=== PATIENT | female | born 2000 | race Caucasian/White ===

== ENCOUNTER 2024-12-30 09:50 | Outpatient (AMB) | payer BC, SELFPAY ==
--- NOTE | 2024-12-30 10:02 | A.OFFVIS_ITS ---
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 Patient says that she gets these symptoms when she suddenly gets up from a sitting or supine position. She remains 1 episode while she was laying down and she got up suddenly, she then felt weird funny in his head with dog vision and before she could tell anything to her boyfriend she had crumpled down to the ground. The boyfriend caught her before she fell down to the ground and she had lost consciousness. She had a transient loss of consciousness for about 30 seconds. As per her the boyfriend says she is extremely pale during that time. However she regained consciousness for aware right away where she was. She had few episodes like this last year. 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 Because of these symptoms she was then referred for cardiology but could not get a cardiology appointment soon. She then a Holter monitor done which shows frequent narrow complex tachycardia, based on the Holter recordings unclear whether these are sinus tachycardia or SVT. Patient subsequently says that because of these recurrent episodes she was advised increase fluid and salt intake which she has been religiously doing since June. Also a thyroid hormone levels were regulated with increasing dose of levothyroxine and since then she has been feeling better with less episodes. However she is still gets these episode where she gets lightheaded feels like tunnel vision, feels called and if she does not sit down and lie down she would lose consciousness. She also has independent symptoms of rapid heart rate which are not associated with the symptoms. She denies any exertional chest pain, shortness of breath. No other systemic illness. She is trying to lose weight and has been prescribed semaglutide on a weekly basis. She denies any significant substance abuse, alcohol use or caffeine intake. She denies any dnuj-cao-upwjdda medications. She has been on Vyvanse for her attention deficit disorder for long time. [facility] Surgical History History of eye surgery Family History Father No problems noted. Mother Diabetes Social History Patient Tobacco Use Status: Never used Tobacco Review of Systems Const Denies chills, Reports daytime sleepiness, Denies fatigue, Denies fever(s), Denies frequent falls, Denies poor appetite, Denies snoring, Denies stops breathing during sleep, Denies weakness, Reports weight gain and Denies weight loss Eyes Denies loss of vision ENT Reports dizziness and Denies hearing loss Card Reports chest pain, Denies claudication, Denies leg edema, Reports lightheadedness, Reports palpitations, Reports dyspnea, Denies dyspnea on exertion and Denies orthopnea Resp Denies cough, Denies excessive phlegm production, Reports dyspnea, Denies dyspnea on exertion, Denies snoring and Denies wheezing GI Denies abdominal pain, Denies hematochezia, Denies change in bowel habits, Denies nausea and Denies vomiting Denies urinary frequency and Denies dysuria Musc Denies arthralgias, Reports muscle weakness and Denies numbness Skin/Breast Denies nail changes and Denies rash Neuro Denies Abnormal speech present, Reports dizziness, Denies frequent falls, Denies loss of vision, Denies memory loss, Denies numbness and Denies weakness Psych Reports depression and Denies memory loss Endo Denies fatigue and Reports palpitations Jabari/Lymph Reports easy bruising and Reports other (anemia) Aller/Immun Denies wheezing Physical Exam Vital Signs: Last Vital Signs Pulse 84 12/30/24 10:03 BP 106/70 12/30/24 10:03 BMI result Body Mass Index 30.9 Const General: cooperative, comfortable, no acute distress, well developed, alert and awake Nutritional Appearance: well nourished and overweight Orientation/consciousness: patient oriented x3 Limitations: no limitations HEENT Head: Yes normocephalic and Yes atraumatic Neck Neck: Yes trachea midline, Yes supple and Yes no JVD Resp Effort & Inspection: normal respiratory effort Auscultation: clear to auscultation bilaterally Cardio Jugular venous distension: no JVD Rate: regular rate Rhythm: regular rhythm Heart sounds: S1 normal heart sound present, S2 normal heart sound present, no click, no gallops and no murmurs GI Auscultation: normal bowel sounds Skin General skin exam: no rashes or lesions noted Neuro General: patient oriented x3 and no focal motor deficits Speech: No Abnormal speech present Extrem General: Yes no clubbing, cyanosis or edema Psych Appearance: grossly normal Office Procedures EKG Details: EKGs shows normal sinus rhythm with left axis deviation voltage criteria for LVH without any repolarization abnormality with small Q-waves in high lateral leads. 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 Mechanism of both syncope is were discussed in details. Most likely trigger is relative hypovolemia. This was discussed with her. Since about June she says she has been increasing her water and salt intake and has led to improvement in his symptoms. She persists with her symptoms. We discussed the role of fluid and salt therapy in maintaining her symptoms and preventing her from having a syncopal episode and improving her quality of life. This was discussed with her. Advised her to push more fluids and salt intake on a regular basis. Orthostatic precautions were discussed. She understands them well. She has an EKGs that possibly suggest hypertrophic cardiomyopathy and would suggest an echocardiogram to evaluate for the same. Will also suggest a 30 day event monitor to assess for the symptoms of palpitations. However for detecting dysautonomia and response to upright tilt table testing with the guide further therapy. At this point time I would advise no pharmacotherapy. However various other options of pharmacotherapy were discussed in details. Avoidance of stimulants was discussed. She is encouraged to continue to participate in weight loss which may have contributed to her symptoms although advised to participate in more regular physical activity which may enhance vagal tone and help some of her rapid heart rate symptoms. Will follow up in the clinic in few months time after above-mentioned testing. Thank you for allowing me to partake in her care Coding Level of Care Code New Pt Level 4 (41343) Complex EM visit Add On G2211 Diagnoses Dysautonomia G90.1 CPT Codes EKG - CPT: 85329-[id number], Complete ([id number])
[2024-12-30 10:03] VITALS: BP 106/70; BP 111/59; BP 113/65; PULSE 71; PULSE 72; PULSE 84; BMI 30.9
--- OUTSIDE RECORDS SUMMARY | 2024-12-30 11:25 | XMS_ITS | Encounter Summary ---
Author Organization [facility] Address [address] [place], [place] [id number] Phone Care Team Providers Care Tile Machine Operator Name Role Phone Inna Muir MD Primary Care Provider [phone] Encounter Details Date Type Department Care Team (Late st Contact Info) Description 07/16/2017 Conversion Encounter [facility] - [address] [address] Inna Muir MD [address] [place] [id number] Social History Tobacco Use Types Packs/Day Years Used Date Smoking Tobacco: Never Assessed Comments Unknown Sex and Gender Information Value Date Recorded Sex Assigned at Not on file Legal Sex Female 6:20 PM EDT Gender Identity Female 11/08/2019 10:29 AM EDT Sexual Orientation Not on file documented as of this encounter Plan of Treatment Not on file documented as of this encounter Visit Diagnoses Not on filedocumented in this encounter Care Teams Tile Machine Operator Relationship Specialty Start Date End Date Inna Muir MD [address] [place] [id number] PCP - General 07/05/17 08/09/22 documented as of this encounter
--- OUTSIDE RECORDS SUMMARY | 2024-12-30 11:25 | XMS_ITS | Clinical Summary ---
Author Organization [facility] Address [address] [place] [phone] Phone Care Team Providers Care Bookbinding Machine Operator Name Role Phone Unavailable Primary Care Provider Unavailabl e Allergies Active Allergy Reactions Criticality Noted Date Comments Nystatin Rash Low 02/01/2022 Medications lisdexamfetamine (Vyvanse) 50 MG capsuleIndications :Attention deficit disorder (ADD) without hyperactivity Take 1 capsule (50 mg total) by mouth every morning. 30 capsule 3 Active Active Problems Problem Noted Date Diagnosed Date Psychosocial stressors 04/03/2020 Overview (04/03/2020): Mom Nov 2019--she had not seen her in awhile and mom had a h/o not being supportive or following through.( of seizure/ other medical issues) Assessment & Plan (04/03/2020 1:09 PM EST): of mom this fall Went to [place] for , missed school, prof not supportive of delaying due dates etc, thus grades suffered College ([employer]) no longer supporting her program, she has transferred to [employer] now, back at home Living back at home has its own stressors--household meals, chores, living with father, stepmothers 1/2 sister Puja supportive, as is her boyfriend Helpful to get out of the house at least once a week Sleep disturbance 12/20/2019 Assessment & Plan (02/01/2022 11:12 AM EST): Overall does well Reviewed that when changing work schedules, the evening/ night of new shift, take melatonin (she has 5 mg) 2 hours before bedtime for the next couple nights This may be helpful in having her readjust her sleep onset time Assessment & Plan (08/17/2021 12:15 PM EDT): No concerns, on reg schedule Assessment & Plan (05/12/2021 10:43 AM EDT): Better now Assessment & Plan (07/03/2020 11:36 AM EDT): Chronic struggles, unclear if due to ADD itself or medication, but recommend trial with hydroxyzine to help with sleep onset. If ineffective or side effects, will shift to clonidine Stop melatonin Stay with reg sleep schedule Assessment & Plan (04/03/2020 1:10 PM EST): Overall better now that she is at home, darker room Still with erratic schedule Advised to work on more reg sleep schedule, always in bed 11 PM, up at the same time Use melatonin to help reset sleep schedule, then stop if possible Assessment & Plan (01/13/2020 6:26 PM EST): Taking melatonin nightly Reg bedtime overall Doing better, continue Assessment & Plan (12/20/2019 12:18 PM EDT): Has had issues when younger, she thinks melatonin helped (stopped due to parental concern) She goes to bed 11-12 and gets up 9:30 Am and takes vyvanse before noon Now having a hard time falling asleep --up for hours Reviewed sleep hygiene in general Take vyvanse right when she gets up, 9:30-10 AM Trial with melatonin an hour before bedtime, around 10:30-11 Ok to increase to 6 mg if needed If not helping, let me know, ? 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 No side effects other than occ GI upset Continue with Vyvanse 50 mg QAM, refill not needed Turning 22, will establish with certified genetic counselor next winter Will prescribe Vyvanse here until then Assessment & Plan (05/12/2021 10:44 AM EDT): Feels the 50 mg worked well last Nov when she took it to help move and work as well, no side effects Would like to restart now, due to some struggles at work Vyvanse 50 mg restarted today, will let me know if not working well F/u 3 months Assessment & Plan (07/03/2020 11:35 AM EDT): Some benefit with Vyvanse 40 mg, calmer, but still a hard time not forgeting things, hearing instructions, paying attention. Thus recommended increasing to 50 mg. Sent in 10 mg dose to add to 40 mg Call if having negative effects with appetite and sleep If no change after a week of trying it, call and will go to 60 mg F/u 3 weeks (if side effects, will change medication) Assessment & Plan (04/03/2020 1:06 PM EST): Overall the vyvanse is helpful, she can concentrate/ focus for longer periods of time. (if takes a break, hard to get going again) Her mind can be all over the place , unclear if anxiety or ADD, as she can focus/get work done. In light of this, recommended staying with current Vyvanse dose of 40 mg. Only takes school days, has needed less due to chaotic end of term (see psychosocial stressors) Call when refill needed Assessment & Plan (01/13/2020 6:28 PM EST): Getting work done more easily, zoom still hard, still easily distracted with on line classes, maintaining attention Sleep issues resolved, and no side effects with Vyvanse 30 mg, thus reasonable to try an increase to 40 mg to see if it can help with her class time, decrease distractibility New Rx done, she is to call or email if having side effects or not tolerating. F/u when home Assessment & Plan (12/20/2019 12:16 PM EDT): Started on Vyvanse, no improvement with 10 mg or 20 mg, no difference. But with 30 mg she is able to complete assignments more easily and overall concentration is better. Still easily distracted. Zoom is hard. Teachers have letter re: ADD dx and need for accommodations. Advised to continue with 30 mg for now, as she is having new sleep issues which may or may not be related. If sleep issues get resolved and we then feel she needs a dose adjustment,we can increase to 40 mg Assessment & Plan (11/29/2019 12:44 PM EDT): concerta 18 mg and 36 mg without noticeable effect. She does feel nauseated from it as well, unable to eat in AM or sometimes later day As it is ineffective and with side effects, will change to alternative choice: Vyvanse, also long acting Reviewed stopping if negative emotional reaction at all Start with 10 mg day1,then 20 mg for a couple days. If no effect, go to 30 mg. Then let me know, email with update. F/u 3 weeks, sooner if needed. She also would like a letter to services of students with disabilities, Tracy Nichole with dx of ADD and support for extended time on tests and a notetaker when needed (one class--zoom, not recorded, no notes, hard for her to retain info, stay focused to take good notes) Letter done and sent today Assessment & Plan (11/08/2019 3:02 PM EDT): Reviewed past concerns, see last visit Reviewed ilana [place]--Sister and scientific laboratory supervisor at [facility]--both know her well. C/w ADD, inattentive type (pt did not want parents, as they feel she is just lazy) .Reviewed indication for trial with ADHD medication, stimulant class. Reviewed risks, benefits and side effects of medication. If she has significant negative moods (depressed, sad) or behaviors (agitiation/anger), stop medication and call office. If decreased lunchtime appetite, try to have them eat more later in the day, and assure a good breakfast. If they have end of day mood swings, provide supportive care and call if not improving within 1-2 weeks. Call in one week if no effects noted, sooner if significant negative effects. Provide teachers with follow-up vanderbuilt scales in 2 weeks, fax back to me. Reviewed that this medication is a controlled substance; keep in safe place. Follow-up 2-3 weeks. Assessment & Plan (09/27/2019 9:47 AM EDT): Impulsive, hard to focus, very fidgety, very short attention span, trouble with mood swings, can hyperfocus on something for hours. Very disorganized, looses things--can remember where she puts things. Has trouble getting through daily tasks (at work, repetitive, one task; but if counting money--got distracted, had to keep restarting), trouble finishing things, easily distracted. Step-sister has ADD (no relation), Dad has ADD. Would like to look into further, as it affects how she performs day to day, lack of memory big thing. Wonders if its related to her struggles in school. Will evaluate further--recommended Vanderbuilts and further evaluation. f/u Acne vulgaris 10/17/2018 Overview (10/17/2018): Better with tretinoin cream Assessment & Plan (09/27/2019 9:39 AM EDT): Only washing face daily now, overall doing well, some break outs with menses Assessment & Plan (10/22/2018 2:06 PM EDT): Continue current cream, call if needs refill Resolved Problems Problem Noted Date Diagnosed Date Resolved Date Dysthymia 10/11/2017 02/01/2022 Overview (10/11/2017): Concerns for depression and ? Mood disorder in 2017, had counselor at the [facility]. Previously worked with Lissa Espinosa at [facility] Assessment & Plan (02/01/2022 11:12 AM EST): Resolved, no current concerns Assessment & Plan (07/03/2020 11:38 AM EDT): Unclear if dysthymia or fatigue, working on sleep issues Also question underlying anxiety, although her worries, are related to her ADD sx--worrying about forgetting things Reevaluate when sleep issues better and after adjustments with ADD medication (TRUDI and PHQ9 abnormal, but as above, affected by sleep and ADHD--she denies significant other anxiety/worries) Assessment & Plan (09/27/2019 10:32 AM EDT): Ongoing concerns, up and downs, mood swings, she talks with her step-sister. Has depressive episodes, withdraws, lets them happen, usually last 5-7 days, not with periods/ no patterns (mom--in [place]--big trigger) Therapy in the past, not as helpful. She didn't like it. Reviewed that she should reconsider counseling in the future, maybe at school/college--as she may find it more helpful in addressing her depressive times and how to manage them. Assessment & Plan (10/22/2018 2:06 PM EDT): Overall doing and feeling better Dysmenorrhea in adolescent 10/11/2017 1 04/04/2021 Overview (10/11/2017): recommended motrin 400 mg every 6 hours at onset of menses, keep calendar too, f/u 2-3 months--consider BCP if significant cramps Assessment & Plan (02/01/2022 11:12 AM EST): Sees SENIOR GROUP MANAGER, has IUD, doing well Assessment & Plan (05/12/2021 10:46 AM EDT): Has IUD, ongoing cramp struggles, takes ibuprofen Assessment & Plan (07/03/2020 11:12 AM EDT): Just got an IUD, hard to know effects yet, but now off OCP. Assessment & Plan (04/03/2020 11:07 AM EST): Taking OCP, but saw SENIOR GROUP MANAGER recently, considering IUD Assessment & Plan (09/27/2019 10:33 AM EDT): Better now, mild, on OCP Menses not really irreg, she is just skipping some after being on the OCP for 2 years+ Menses now nonexistent or light, no concern of No concerns, reassured that this pattern is ok Assessment & Plan (10/22/2018 2:07 PM EDT): Recommended starting OCP due to severity of cramps 18 yr 6 mo female non-smoker who wishes to start OCP for medical reasons. She is not sexually active and is not currently thinking about becoming sexually active. She denies any personal or family hx of clotting disorders and she has no hx of migraines. We discussed possible side effects including WONG, breast tenderness and unscheduled bleeding. I let her know that these most often resolve in the first 3 months, but she will call with any concerns. Will recheck in 2-3 months. Reviewed risks/ benefits and side effects, given handouts, recommend Monday start Immunizations Immunization Administration Dates Next Due COVID-19 Pfizer, monovalent, 12+ years COVID-19 Pfizer, souleymane-sucros e, 12+ years 09/06/2021 DTaP 06/25/2002, 2,2001,06/01,2001 H1N1 01/30/2009,12/30/2008 HPV Vaccine 9 Valent 07/13/2016,06/04/2015 Hep A, ped/adol 04/27/2011,09/28/2010 Hep B, ped/adol 2001,2001,2001 Hib (PRP-OMP) 06/25/2002, 2,2001,06/01 IPV 05/02/2006, 3,2001,06/01 Influenza, injectable, quadrivalent 04/03/2020 MMR 05/02/2006,06/25/2002 Meningococcal B Bexsero 04/03/2020,09/27/2019 Meningococcal Conj (Menactra) MCV4P 10/17/2018,0 10/24/2012 Pneumococcal Conjugate 08/31/2002,2001,2001,06/01 Tdap 10/24/2012 Varicella 05/02/2006,03/28/2002 Family History Medical History Relation Name Comments Seizures Mother Relation Name Status Comments Mother 11/2019--kurtis ibarra Social History Tobacco Use Types Packs/Day Years Used Date Smoking Tobacco: Never Smokeless Tobacco: Never Alcohol Use Standard Drinks/Week Comments No 0 (1 standard drink = 0.6 oz pur e alcohol) Hunger/Food Answer Date Recorded In the last 12 months, did y ou or your family ever eat less than you felt you should because there wasn't enough money for food? No 05/05/2021 Stable Housing Answer Date Recorded Are you worried that in the next 2 months you may not have stable housing? No 05/05/2021 Transportation Concerns Answer Date Rec orded In the last 12 months, have you or your family ever had to go without healthcare because you didn't have a way to get there? No 05/05/2021 Hazards in Home Answer Date Recorded Think about the place you li ve. Do you have problems with any of the following? Pests (mice or roaches), mold, no/not working smoke detectors, water leaks, no window guards. No 2021 Financing Utilities Answer Date Recorde d In the last 12 months, has t he electric, gas, oil, or water company threatened to shut off your services in your home? No 05/05/2021 Safety at Home Answer Date Recorded Are you or your family worried about feeling saf e in your home? No 05/05/2021 Outside Support Answer Date Recorded Do you feel that you need mo re support from other people or programs to help you care for yourself or your family? No 05/05/2021 Understanding Health Concerns Answer Da te Recorded Do you need help understandi ng your or your child's healthcare needs (diagnosis, medications, plan, etc.)? No 05/05/2021 Financing Health Concerns Answer Date R ecorded In the last 12 months, was t here a time when your child needed to see a doctor or get medications or supplies but could not because of cost? No 05/05/2021 Missing School or Work Answer Date Curtis rded Did you or your child miss s chool or work because of a health problem that could have been avoided? No 05/05/2021 Comments Unknown Sex and Gender Information Value Date Recorded Sex Assigned at Not on file Legal Sex Female 6:20 PM EDT Gender Identity Female 11/08/2019 10:29 AM EDT Sexual Orientation Not on file Last Filed Vital Signs Vital Sign Reading Time Taken Comments Blood Pressure 112/76 02/01/2022 11:04 AM EST Pulse 77 05/12/2021 10:14 AM EDT Temperature 36.3 C (97.4 F) 02/01/2022 10:41 AM EST Respiratory Rate - - Oxygen Saturation 96% 05/12/2021 10:14 AM EDT Inhaled Oxygen Concentration - - Weight 96.7 kg (213 lb 3.2 oz) 02/01/2022 10:41 AM EST Height 161.3 cm (5' 3.5 ) 02/01/2022 10:41 AM ES T Body Mass Index 37.17 02/01/2022 10:41 AM EST Plan of Treatment Health Maintenance Due Date Last Done Comments HIV Screening 2016 Hepatitis C Screening 2019 Chlamydia and Gonorrhea Screening 02/28/2024 022 COVID-19 Vaccine ( - 2024-2 6 season) 2024 02/06/2024, 01/30/2023, 09/06/2021, Additional history exists DTaP,Tdap,and Td Vaccines (7 - Td or Tdap) 10/04/2033 10/05/2023, 10/24/2012, 06/25/2002, Additional history exists Hepatitis B Vaccines Completed 2001, 2001, 2001 HIB Vaccines Completed 06/25/2002, 09/27, 2001, Additional history exists Pneumococcal Vaccine Completed 08/31/2002, 2001, 2001, Additional history exists IPV Vaccines Completed 05/02/2006, 0706/2002, 2001, Additional history exists MMR Vaccines Completed 05/02/2006, 06/25/2002 Hepatitis A Vaccines Completed 04/27/2011, 09/29/19 11 HPV Vaccines Completed 07/13/2016, 06/04/2015 Meningococcal Vaccine Completed 10/17/2018, 013 Men B Vaccine Completed 04/03/2020, 09/27/2019 Varicella Vaccines Completed 11/13/2023, 0 05/02/2006, 03/28/2002 Influenza Vaccines Discontinued 12/13/2023, 1 04/02/2022, 12/08/2021, Additional history exists Procedures * Due to [place] Eloqu[place] law, this organization might not be sharing sensitive test results. Procedure Name Priority Date/Time Associated Diagnosis Comments CHLAMYDIA AND GONORRHEA, AMPLIFIED Routine 05/12/2021 10:18 AM EDT Encounter for screening examination for sexually transmitted disease from Last 3 Months or Most Recently Relevant to Health Maintenance Results * Due to [place]oqu[place] law, this organization might not be sharing sensitive test results. * Chlamydia and Gonorrhoea, Amplified (05/12/2021 10:18 AM EDT) Chlamydia trachomatis RNA, TMA Negative Negative- [facility] Neisseria Gonorrhea RNA Negative Negative- [facility] Comment: The Aptima Combo 2 assay is a target amplification nucleic acid probe test that utilizes target capture for the in vitro qualitative detection and differentiation of ribosomal RNA (rRNA) from Chlamydia trachomatis (CT) and/or Neisseria gonorrhoeae (GC) to aid in the diagnosis of chlamydial and/or gonococcal disease using the Snow System. Methodology: Nucleic Acid Amplification Test (NATT), specifically [place] Hydraulic Press Operator Mediated Amplification (TMA) Results from the Aptima Combo 2 assay should be interpreted in conjunction with other laboratory and clinical data available to the clinician. A negative result does not preclude a possible infection because results are dependent on adequate specimen collection. Test results may be affected by improper specimen collection, technical error, specimen mix-up, or target levels below the assay limit of detection. Urine (Urine) 05/12/2021 10: 18 AM EDT 05/13/2021 12:[address] [facility] - 05/13/2021 12:33 PM EDT URINE us Inna Muir MD LAB MICROBIOLOGY - GENERAL ORDERABLES Final Result [facility] from Last 3 Months or Most Recently Relevant to Health Maintenance Insurance [facility] NON PCC
== END 2024-12-30 11:08 | disposition home or self-care (01) ==
LOC: HO.HCS 09:50
PROVIDERS: PCP Nurse Practitioner; Visit Provider Internal Medicine Cardiovascular Disease
DX: G90.1 Familial dysautonomia [Riley-Day] (principal)
CPT/HCPCS: 93010; 99204

== ENCOUNTER → 2024-12-30 09:50 | Outpatient (BNVA) | payer BC, SELFPAY | PROVIDERS: PCP Nurse Practitioner; Visit Provider Internal Medicine Cardiovascular Disease | DX: G90.1 Familial dysautonomia [Riley-Day] (principal) | CPT/HCPCS: 93005 ==

== ENCOUNTER → 2025-01-30 09:56 | Outpatient (REF) | payer BC, SELFPAY ==
--- NOTE | 2025-01-30 10:03 | CA_ITS ---
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 The calculated ejection fraction is 62% by biplane method. - No obvious valvular pathology seen on this study. Findings Procedure Information Contrast agent, definity, is being given per protocol without apparent complications. Left Ventricle Normal left ventricular cavity size. There is normal left ventricular wall thickness. The left ventricular systolic function is normal. The calculated ejection fraction is 62% by biplane method. There is no evidence of regional wall motion abnormalities. Diastolic function is normal for age. Right Ventricle Normal right ventricular cavity size and systolic function. Atria Both atria are normal in size. Aortic Valve There is a normal trileaflet aortic valve. There is no aortic valve stenosis. There is no aortic valve regurgitation. Mitral Valve The mitral valve appears normal. There is no mitral valve regurgitation. There is no mitral valve stenosis. Pulmonic Valve The pulmonic valve is likely normal. Tricuspid Valve There is no tricuspid valve regurgitation. Tricuspid regurgitation envelope is inadequate for calculation of right ventricular systolic pressure. Great Vessels The asc aorta is normal in size. Venous The inferior vena cava is normal in size and collapses greater than 50% with inspiration. Pericardium/Pleural There is no evidence of pericardial effusion. Prior Study Comparison No prior study available for comparison. Recommendations, Care & Conclusions No obvious valvular pathology seen on this study. Measurements 2D Linear Measurements IVSd: 1.00 0.6-0.9/0.6-1.0 cm LVIDd: 3.52 3.9-5.3/4.2-5.9 cm LVIDd Index: 1.89 2.4-3.2/2.2-3.1 cm/m2 LVIDs: 2.28 2.0-3.6 cm LVPWd: 0.80 0.7-1.1 cm LA Diam: 2.70 2.7-3.8/3.0-4.0 cm LAIDs Index: 1.45 1.5-2.3 cm/m2 LV Mass: 110.79 67-162/88-224 g LV Mass Index: 59.57 43-95/49-115 g/m2 LVOT Diam: 2.10 3.0+(-)1.3 cm 2D Systolic Function EF 4C: 55.60 >55% EF 2C: 67.90 >55% EF BiP: 62.40 >55% Mitral Valve MV Pk E: 1.17 MV PK A: 0.62 MV Decel Time: 205.00 E/A: 1.90 E'Lateral: 21.30 E'Medial: 10.00 E/E' Med: 11.70 E/E' Lat: 5.50 PHT: 60.00 MVA PHT: 3.67 Decel [place]: 5.72 Aortic Valve AoV Pk Juan: 1.20 AoV Mn Juan: 0.91 AoV VTI: 0.27 AoV Pk Grad: 6.00 Aov Mn Grad: 4.00 MICHAEL Cont.VTI: 2.89 LVOT LVOT Pk Juan: 1.17 LVOT Mn Juan: 0.86 LVOT VTI: 0.23 LVOT Pk Grad: 5.00 LVOT Mn Grad: 3.00 LVOT Diam: 2.10 LVOT Area: 3.46 Diastolic Function MV Pk E: 1.17 MV Pk A: 0.62 E/A: 1.90 E'Medial: 10.00 E/E' Med: 11.70 E' Laterial: 21.30 E/E' Lat: 5.50 Right Ventricle TAPSE (mm): 21.70 TVS' Juan: 12.20 Tricuspid Valve RA Press: 3.00 Great Vessels Aorta Sinus of Valsalva: 2.82 2.0-3.5 cm Ao Asc: 2.40 2.1-3.4 cm Ao Arch: 2.20 Pulmonary Veins Pulm Vein S/D 0.60 Updated in Other Vendor System with Status of Final Lennox King MD electronically signed on 02/01/2025 11:14:54 AM with status of Final
--- OUTSIDE RECORDS SUMMARY | 2025-01-30 11:48 | XMS_ITS | Clinical Summary ---
Author Organization [facility] Address [address] [place] [phone] Phone Care Team Providers Care Jewelry Bench Worker Name Role Phone Unavailable Primary Care Provider [...] EST): of mom this fall Went to [place] for , missed school, prof not supportive of delaying due dates etc, thus grades suffered College ([employer]) no longer supporting her program, she has transferred to [employer] [employer] [facility] now, back at home Living back at [...] call for refill Will refill here at [facility] until she establishes with manager data center/ FP this spring Assessment & Plan (08/17/2021 12:19 PM EDT): Doing well with Vyvanse, 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 No side effects other than occ GI upset Continue with Vyvanse 50 mg QAM, refill not needed Turning 22, will establish with manager data center next winter Will prescribe Vyvanse here until [...] see last visit Reviewed ilana [place]--Sister and waterproofing supervisor at [employer] [facility] [employer]--both know her well. C/w ADD, inattentive type [...] disorder in 2017, had counselor at the [facility]. Previously worked with Lissa Espinosa at [facility] Assessment & Plan (02/01/2022 11:12 AM EST): [...] days, not with periods/ no patterns (mom--in [place]--big trigger) Therapy in the past, not as [...] & Plan (02/01/2022 11:12 AM EST): Sees ADVANCED NURSING PROFESSOR, has IUD, doing well Assessment & Plan (05/12/2021 10:46 AM EDT): Has IUD, ongoing cramp struggles, takes ibuprofen Assessment & Plan (07/03/2020 11:12 AM EDT): Just got an IUD, hard to know effects yet, but now off OCP. Assessment & Plan (04/03/2020 11:07 AM EST): Taking OCP, but saw ADVANCED NURSING PROFESSOR recently, considering IUD Assessment & Plan (09/27/2019 [...] 11/13/2023, 0 05/02/2006, 03/28/2002 Influenza Vaccines Discontinued 12/17/2024, 1 , 01/30/2023, Additional history exists Procedures * Due to [place] [employer] law, this organization might not be sharing sensitive test results. Procedure Name Priority Date/Time Associated Diagnosis Comments CHLAMYDIA AND GONORRHEA, AMPLIFIED Routine 05/12/2021 10:18 AM EDT Encounter for screening examination for sexually transmitted disease from Last 3 Months or Most Recently Relevant to Health Maintenance Results * Due to [place] [employer] law, this organization might not be sharing sensitive test results. * Chlamydia and Gonorrhoea, Amplified (05/12/2021 10:18 AM EDT) Chlamydia trachomatis RNA, TMA Negative Negative- [facility] Neisseria Gonorrhea RNA Negative Negative- [facility] Comment: The Aptima Combo 2 assay is a target amplification nucleic acid probe test that utilizes target capture for the in vitro qualitative detection and differentiation of ribosomal RNA (rRNA) from Chlamydia trachomatis (CT) and/or Neisseria gonorrhoeae (GC) to aid in the diagnosis of chlamydial and/or gonococcal disease using the [place] System. Methodology: Nucleic Acid Amplification Test (NATT), specifically Guide Domestic Tour Mediated Amplification (TMA) Results from the Aptima [...] 18 AM EDT 05/13/2021 12:33 PM EDT [facility] - 05/13/2021 12:33 PM EDT URINE us Inna Miur MD LAB MICROBIOLOGY - GENERAL ORDERABLES Final Result [facility] from Last 3 Months or Most Recently Relevant to Health Maintenance Insurance [facility] NON PCC
--- OUTSIDE RECORDS SUMMARY | 2025-01-30 11:48 | XMS_ITS | Clinical Summary ---
Author Organization [facility] Address [address] [place] [address] Phone Care Team Providers Care Plant Protection Officer Name Role Phone Unavailable Primary Care Provider Unavailabl e Social History Tobacco Use Types Packs/Day Years Used Date Smoking Tobacco: Never Assessed Comments Unknown Sex and Gender Information Value Date Recorded Sex Assigned at Not on file Legal Sex Female 10:40 AM EST Gender Identity Not on file Sexual Orientation Not on file Plan of Treatment Upcoming Encounters Date Type Department Care Team (Late st Contact Info) Description 04/15/2025 1:[address] [facility] [address] [place] [address] Health Maintenance Due Date Last Done Comments Gonorrhea/Chlamydia Screening 2001 HPV Vaccines (1 - 3-dose series) 2016 Meningococcal B Vaccine (1 o f 2 - Standard) 2017 DTaP,Tdap,and Td Vaccines (1 - Tdap) 2020 Hepatitis B Vaccines (1 of 3 - 19+ 3-dose series) 2020 Cervical Cancer Screening: P ap Smear 2022 Depression Screening 02/28/2024 COVID-19 Vaccine (1 - 2024-2 6 season) 2024 Influenza Vaccine (#1) 2024 HIV Screening 01/03/2025 Hepatitis C Screening 01/03/2025 Social Influencers of Health Screening 01/03/2025 RSV Immunization Adult Patie nts (1 - 1-dose 75+ series) 2076 HIB Vaccines Aged Out No longer eligi ble based on patient's age to complete this topic Hepatitis A Vaccines Aged Out No long er eligible based on patient's age to complete this topic IPV Vaccines Aged Out No longer eligi ble based on patient's age to complete this topic MMR Vaccines Aged Out No longer eligi ble based on patient's age to complete this topic Meningococcal ACWY Vaccine Aged Out N o longer eligible based on patient's age to complete this topic Pneumococcal Vaccine: Pediat rics (0 to 5 Years) and At-Risk Patients (6 to 49 Years) Aged Out No longer eligible b ased on patient's age to complete this topic RSV Immunization Patients Un [place] 20 months Aged Out No longer eligible b ased on patient's age to complete this topic Varicella Vaccines Aged Out No longer eligible based on patient's age to complete this topic Insurance [facility]
--- OUTSIDE RECORDS SUMMARY | 2025-01-30 11:48 | XMS_ITS | Encounter Summary ---
Author Organization [facility] Address [address] [place] [phone] Phone Care Team Providers Care Python Consultant Name Role Phone Inna Muir MD Primary Care Provider Encounter Details Date Type Department Care Team (Late st Contact Info) Description 07/16/2017 Conversion Encounter [facility] - [address] [phone] Inna Muir MD [address] [place] [phone] Social History Tobacco Use Types Packs/Day Years [...] on filedocumented in this encounter Care Teams Python Consultant Relationship Specialty Start Date End Date Inna Muir MD [address] [place] [phone] PCP - General 07/05/17 08/09/22 documented as of this encounter
== END ==
LOC: HO.CARD 09:56
PROVIDERS: Visit Provider Internal Medicine Cardiovascular Disease
DX: G90.1 Familial dysautonomia [Riley-Day] (principal); R94.31 Abnormal electrocardiogram [ECG] [EKG]; R00.2 Palpitations
CPT/HCPCS: 93270; 93306; Q9957

== ENCOUNTER → 2025-01-30 10:03 | Outpatient (BNV) | payer BC, SELFPAY | PROVIDERS: Visit Provider Internal Medicine | DX: G90.1 Familial dysautonomia [Riley-Day] (principal) | CPT/HCPCS: 93306 ==